=== PATIENT | male | born 1940 | race Caucasian/White ===

== ENCOUNTER 2019-01-19 10:13 | Emergency (ER) | payer OTHER, MEDICARE ==
[~2019-01-19] VITALS: Ht 167.6 cm; Wt 65.9 kg
[~2019-01-19 10:13] MED LIST: ALLO300T PO; DICL100T PO; DONE10TA7 PO; HYDR-3240 PO; TIOT18CA INH
[2019-01-19] MEDS ORDERED: ALBUTEROL/IPRATROPIUM 2.5MG/0.5MG, 3 ML ONE (10:20)
--- NOTE | 2019-01-19 10:20 | NUR ---
BIB [facility]- Pt with syncopal episode this morning while in the bathroom. Pt does not remember event. Pt denies pain or injury at this time but states bilat leg weakness. Pt with increased WOB, pt's states his breathing is "not normally like that". Pt wheezing throughout. Pt speaking 1 word sentences. RT called on pt arrival to department. Pt placed in gown, positioned for comfort in bed. Continuous heart, oxygen and BP monitors applied, all safety measures observed.
--- NOTE | 2019-01-19 10:25 | NUR ---
RT at bedside to administer breathing tx per protocol.
--- NOTE | 2019-01-19 10:29 | NUR ---
Pt states that his breathing feels better after neb tx. Wheezing still noted throughout lung jeffers but improved from initial assessment. Pt positioned for comfort in bed, all safety measures observed. Family at bedside, supportive.
[2019-01-19] MEDS ORDERED: SIMV40TA3 PO (10:31)
--- NOTE | 2019-01-19 10:41 | NUR ---
Pt medicated per MAR.
--- NOTE | 2019-01-19 10:50 | NUR ---
Dr. Shaffer at bedside to evaluate pt.
--- NOTE | 2019-01-19 10:52 | NUR ---
CODE NEURO CALLED, LAST KNOWN WELL AT 01/18/[address] [facility] STROKE SCALE 3.
[2019-01-19] MEDS ORDERED: SODIUM CHLORIDE FLUSH 10ML SYR IVF ONE (11:00)
--- NOTE | 2019-01-19 11:03 | NUR ---
Pt in CT.
[2019-01-19 11:10] LABS: BASOPHILS # (AUTO) 0.03 x10^3/uL (0-0.1); BASOPHILS % (AUTO) 1 % (0-1); EOSINOPHILS # (AUTO) 0.07 x10^3/uL (0-0.4); EOSINOPHILS % (AUTO) 1 % (1-7); LYMPHOCYTES # (AUTO) 0.84 x10^3/uL (1-3.4); LYMPHOCYTES % (AUTO) 15 % (22-44); MD NO; MEAN CORPUSCULAR HEMOGLOBIN 32.3 pg (27.5-34.5); MEAN CORPUSCULAR HGB CONC 33.1 g/dL (33.2-36.2); MEAN CORPUSCULAR VOLUME 97.7 fL (81-97); MEAN PLATELET VOLUME 9.1 fL (7.4-10.4); MONOCYTES # (AUTO) 0.49 x10^3/uL (0.2-0.8); MONOCYTES % (AUTO) 9 % (2-9); NEUTROPHILS # (AUTO) 4.28 x10^3/uL (1.8-6.8); NEUTROPHILS % (AUTO) 75 % (42-75); PLATELET COUNT 192 x10^3/uL (130-400); RED BLOOD COUNT 4.52 x10^6/uL (4.38-5.82); RED CELL DISTRIBUTION WIDTH 14.5 % (9.4-14.8)
--- NOTE | 2019-01-19 11:16 | NUR ---
Pt back from CT.
[2019-01-19 11:20] LABS: ALANINE AMINOTRANSFERASE 25 U/L (12-78); ANION GAP 6 mmol/L (5-15); CALCIUM 8.9 mg/dL (8.5-10.1); CHLORIDE 114 mmol/L (98-107); INTERNATIONAL NORMALIZED RATIO 1.07 (0.93-1.1); PROTHROMBIN TIME 11.2 Seconds (9.6-11.5)
--- NOTE | 2019-01-19 11:20 | NUR ---
Dr. Brock at bedside to evaluate pt.
--- NOTE | 2019-01-19 11:23 | NUR ---
Pt's breathing appears much improved. Pt's skin PWD. Pt A&O to self and situation, unsure of date.
[2019-01-19 11:26] LABS: ALKALINE PHOSPHATASE 72 U/L (45-117); BILIRUBIN,TOTAL 0.9 mg/dL (0.2-1.0); CREATININE 1.35 mg/dL (0.7-1.3); TOTAL PROTEIN 7.1 g/dL (6.4-8.2); TROPONIN I < 0.015 ng/mL (0.000-0.045)
--- NOTE | 2019-01-19 11:54 | NUR ---
Pt resting in bed with eyes closed, resp even and unlabored, NADN.
--- NOTE | 2019-01-19 12:12 | NUR ---
Pt assisted to void into urinal. Pt asking "What happened?" Pt does not recall events of this morning. Pt denies pain or other needs at this time.
[2019-01-19] MEDS ORDERED: MORPHINE SULFATE 4 MG/ML, 1ML ONE (12:25)
--- NOTE | 2019-01-19 12:25 | NUR ---
Pt's called this RN into pt room. Pt c/o sudden onset severe frontal LEE. Pt pale, not able to open eyes fully but otherwise no changes to neuro assessment. Discussed with Dr. Shaffer.
[2019-01-19] MEDS ORDERED: MORPHINE SULFATE 4 MG/ML, 1ML IVPush PRN (12:30)
--- NOTE | 2019-01-19 12:32 | NUR ---
Orders received from Dr. Shaffer for 4mg Morphine IVP. This RN entered room and pt appears more calm, states LEE is still present "but better", 4/10 at this time. Pt able to open eyes fully, neuro intact. Pt medicated per order.
[2019-01-19] MEDS ORDERED: OMNIPAQUE 350 MG/ML, 100ML BOTTLE ONE (12:50)
--- NOTE | 2019-01-19 12:55 | NUR ---
BREAK RN: PT SLEEPING RESP EVEN AND UNLABORED. AT BS
--- NOTE | 2019-01-19 13:13 | NUR ---
BREAK RN: PT TO MRI VIA [facility].
[2019-01-19] MEDS ORDERED: ONDANSETRON 2MG/ML, 2ML ONE ×2 (13:24→14:51)
--- NOTE | 2019-01-19 13:34 | NUR ---
Pt in MRI. Prior to exam pt had episode of emesis. Discussed with Dr. Shaffer. Orders received for 4mg Zofran IVP. Pt medicated per order in MRI. Pt states LEE improved, states he feels ready for MRI.
[2019-01-19] MEDS ORDERED: GADOBUTROL 7.5 MMOL/7.5 ML PFS ONE (13:47)
--- NOTE | 2019-01-19 13:50 | NUR ---
REPORT FROM CT SCHAEFFER. PATIENT CURRENTLY IN MRI
--- NOTE | 2019-01-19 14:08 | NUR ---
PATIENT RETURNED FROM MRI, ANSWERS SOME QUESTIONS, SLURRED SPEECH. AT BS
--- NOTE | 2019-01-19 14:56 | NUR ---
PATIENT VOMITED. 4 MG ZOFRAN GIVEN. PATIENT CLEANED AND CHANGED. ASSOCIATE TECHNICIAN AT BS FOR EEG MONITOR. UPDATED ON PLAN OF CARE
[2019-01-19] MEDS ORDERED: ONDANSETRON 2MG/ML, 2ML IVPush ONE (15:00)
--- NOTE | 2019-01-19 15:56 | NUR ---
PATIENT VOMITED AFTER EEG. MD CUMMINGS NOTIFIED. PATIENT CLEANED AND UPDATED. AWAITING MRI READ
--- NOTE | 2019-01-19 16:59 | NUR ---
PATIENT ATTEMPTING TO URINATE. UNABLE TO USE URINAL. PATIENT INCONSISTENTLY ANSWERING QUESTIONS. WHEN ASKED WHO IS WITH HIM () HE RESPONDS THAT A SPORTS TEAM IS WITH HIM.
--- NOTE | 2019-01-19 17:32 | NUR ---
REPORT GIVEN TO ANA MARIA SCHAEFFER
[2019-01-19 17:39] VITALS: BP 136/64
== END 2019-01-19 17:46 | disposition short-term general hospital (02) ==
LOC: ED 12:51
DX: R55 Syncope and collapse (principal); I10 Essential (primary) hypertension; W19.XXXA Unspecified fall, initial encounter; Y93.89 Activity, other specified; Y92.89 Other specified places as the place of occurrence of the external cause; Y99.8 Other external cause status
CPT/HCPCS: 36415; 70450; 70496; 70498; 70553; 71045; 80053; 83605; 83880; 84484; 85025; 85610; 85730; 87040; 93005; 94640; 95819; 96374; 96375; 99291; 99292; A9585; J2405; J7512; Q9967

== ENCOUNTER 2019-09-04 14:07 | Emergency (ER) | payer OTHER, MEDICARE ==
[~2019-09-04] VITALS: Ht 167.6 cm; Wt 82.6 kg
[~2019-09-04 14:07] MED LIST changes: +SIMV40TA3 PO
[2019-09-04 14:53] VITALS: BP 158/70
== END 2019-09-04 16:46 | disposition home or self-care (01) ==
LOC: ED 16:40
DX: S80.01XA Contusion of right knee, initial encounter (principal); I10 Essential (primary) hypertension; Z87.891 Personal history of nicotine dependence; W00.1XXA Fall from stairs and steps due to ice and snow, initial encounter; Y93.89 Activity, other specified; Y92.009 Unspecified place in unspecified non-institutional (private) residence as the place of occurrence of the external cause; Y99.8 Other external cause status
CPT/HCPCS: 99283

== ENCOUNTER 2019-12-22 14:38 | Emergency (ER) | payer MEDICARE, OTHER ==
[~2019-12-22] VITALS: Ht 167.6 cm; Wt 81.4 kg
[~2019-12-22 14:38] MED LIST changes: +SIMV40TA20 PO; -SIMV40TA3 PO
[2019-12-22 14:44] VITALS: BP 137/64
--- NOTE | 2019-12-22 14:49 | NUR ---
Pt to room from triage.
[2019-12-22] MEDS ORDERED: DIPH,PERTUSS(ACELL),TET VAC/PF 0.5 ML IM-VACC ONE ×2 (14:51→15:00)
[2019-12-22] MEDS ORDERED: LIDOCAINE-MPF 1%, 5ML ONE (14:54)
[2019-12-22] MEDS ORDERED: LIDOCAINE-MPF 1%, 5ML INFIL ONE (15:00)
== END 2019-12-22 15:38 | disposition home or self-care (01) ==
LOC: ED 15:25
DX: S61.412A Laceration without foreign body of left hand, initial encounter (principal); W26.9XXA Contact with unspecified sharp object(s), initial encounter; Y93.89 Activity, other specified; Y92.009 Unspecified place in unspecified non-institutional (private) residence as the place of occurrence of the external cause; Y99.8 Other external cause status
CPT/HCPCS: 12041; 90471; 90715; 99284